=== PATIENT | male | born 1995 | race Caucasian/White ===

== ENCOUNTER 2019-10-24 18:24 | Emergency (ER) | payer OTHER ==
[2019-10-24] MEDS ORDERED: Acetaminophen/HYDROcodone 325-10 MG Tab PO ONE (18:25)
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
[2019-10-24 20:20] LABS: ANION GAP 14.7 mEq/L (7-13); CHLORIDE,CL 102 mmol/L (98-107); SODIUM,NA 140 mmol/L (136-145)
[2019-10-24] MEDS ORDERED: Lidocaine 1% 30 ML SDV INJECT ONE (21:23)
[2019-10-24] MEDS ORDERED: Acetaminophen/HYDROcodone 325-10 MG Tab ONE (21:50)
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
== END 2019-10-24 21:53 | disposition home or self-care (01) ==
LOC: DL.ED 18:24
DX: S02.2XXA Fracture of nasal bones, initial encounter for closed fracture (principal); S01.511A Laceration without foreign body of lip, initial encounter; S93.601A Unspecified sprain of right foot, initial encounter; S02.5XXA Fracture of tooth (traumatic), initial encounter for closed fracture; V49.3XXA Car occupant (driver) (passenger) injured in unspecified nontraffic accident, initial encounter
CPT/HCPCS: 12011; 36415; 70450; 70486; 72125; 73630; 80053; 85025; 99284; A9270; J2001